=== PATIENT | female | born 1950 | race American Indian/Alaskan Native ===

== ENCOUNTER 2022-10-29 20:05 | Emergency (ER) | payer MEDICAID, MEDICARE ==
[2022-10-29 21:25] LABS: BILIRUBIN,URINE NEGATIVE (Negative); GLUCOSE,URINE 1+ (Negative); KETONES,URINE NEGATIVE (Negative); LEUKOCYTE ESTERASE,URINE 3+ (Negative); NITRITE,URINE NEGATIVE (Negative); OCCULT BLOOD,URINE 2+ (Negative); PH,URINE 5.5 (5.0-8.0); PROTEIN,URINE 2+ (Negative)
[2022-10-29 21:28] LABS: APPEARANCE,URINE CLOUDY (Clear); COLOR,URINE YELLOW (Yellow)
[2022-10-29 21:29] LABS: BACTERIA,URINE MANY /hpf (FEW); MUCUS,URINE MODERATE /hpf (FEW); RBC,URINE >100 /hpf (0-5); WBC,URINE >100 /hpf (0-5)
[2022-10-29] MEDS ORDERED: Levofloxacin 500 MG Tab PO ONE (21:32)
== END 2022-10-29 22:05 | disposition home or self-care (01) ==
LOC: JD.ED 20:05
DX: N12 Tubulo-interstitial nephritis, not specified as acute or chronic (principal); I10 Essential (primary) hypertension; E11.9 Type 2 diabetes mellitus without complications; Z79.899 Other long term (current) drug therapy; Z88.5 Allergy status to narcotic agent; Z88.2 Allergy status to sulfonamides
CPT/HCPCS: 81001; 87086; 87088; 87186; 99284; A9270